=== PATIENT | male | born 1950 | race Caucasian/White ===

== ENCOUNTER → 2022-03-25 | Outpatient (CLI) | payer MEDICARE, OTHER ==
--- NOTE | 2022-03-25 17:28 | Diagnostic Imaging Report ---
KNEE, RIGHT, 4 VIEWS OR > INDICATION: Knee pain. COMPARISON: None available. TECHNIQUE: Four views of the right knee. FINDINGS: No acute fracture. Severe joint space narrowing in the medial compartment. No trochlear dysplasia. No subluxation of the patella. Small knee joint effusion. No mineralized joint bodies. IMPRESSION: Severe degenerative arthritis in the medial compartment. Dictated by: Dictated on workstation # [id number]
== END ==
LOC: ORTHO 09:13
PROVIDERS: ATTEND Orthopaedic Surgery
DX: M17.11 Unilateral primary osteoarthritis, right knee (principal)
CPT/HCPCS: 20610; 73564; G0463

== ENCOUNTER → 2022-05-11 | Outpatient (CLI) | payer MEDICARE, OTHER | LOC: ORTHO 14:44 | PROVIDERS: ATTEND Orthopaedic Surgery | DX: M17.11 Unilateral primary osteoarthritis, right knee (principal) | CPT/HCPCS: 99213 ==

== ENCOUNTER → 2022-09-23 | Outpatient (CLI) | payer MEDICARE, OTHER | LOC: ORTHO 11:35 | PROVIDERS: ATTEND Orthopaedic Surgery | DX: M17.11 Unilateral primary osteoarthritis, right knee (principal) | CPT/HCPCS: 20610 ==

== ENCOUNTER → 2022-11-17 | Outpatient (CLI) | payer MEDICARE, OTHER ==
--- NOTE | 2022-11-17 16:01 | Diagnostic Imaging Report ---
INDICATION: PAIN IN LEFT FOOT. TECHNIQUE: 3 views of the left foot CORRELATION STUDY: None FINDINGS: Hallux valgus and primus varus alignment is noted. There is a mildly advanced degenerative change at the 1st MTP joint with joint space narrowing and osteophyte formation. Hypertrophic change about the underlying sesamoid bones. There is significant distortion at the tarsometatarsal articulation particularly at the 2nd, 3rd and 4th digits. Additional osteophyte formation at the 1st MTP joint. Prominent osteophyte with spurlike formation along the tarsometatarsal articulation dorsally. The hindfoot has a more normal appearance. Small plantar calcaneal spur. Suggest mild soft tissue edema over the foot and anterior ankle. IMPRESSION: 1. Largely rather prominent chronic type change about the left foot. 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 This includes some bone fragmentation at the cuneiforms and base of the 2nd and 3rd metatarsals. 2. Advanced degenerative changes of the 1st MTP joint. 3. If further evaluation desired, CT imaging would likely be additional diagnostic diagnostic utility. Underlying osteonecrosis at the cuneiforms is not excluded and somewhat suspect. Dictated by: Dictated on workstation # [id number]
== END ==
LOC: ORTHO 09:32
PROVIDERS: ATTEND Orthopaedic Surgery
DX: M19.072 Primary osteoarthritis, left ankle and foot (principal)
CPT/HCPCS: 20610; 73630; G0463; 99213